=== PATIENT | female | born 1980 | race Caucasian/White ===

== ENCOUNTER 2025-01-16 11:19 | Outpatient (REF) | payer MEDICAID, SELFPAY ==
[2025-01-16 13:58] LABS: Hematocrit 41.4 % (37.0-47.0); Hemoglobin 13.6 g/dl (12.0-16.0); Mean Corpuscular HGB Conc 32.9 g/dl (31.0-35.0); Mean Corpuscular Hemoglobin 28.8 pg (27.0-33.0); Mean Corpuscular Volume 87.5 fL (80.0-98.0); NRBC Abs Auto 0.000 X10*3/uL (0.0-0.012); NRBC Pct Auto 0.0 /100WBC (0.0-0.2); Platelet Count 337 X10*3/uL (160-400); Red Blood Count 4.73 X10*6/uL (4.20-5.50); White Blood Count 8.0 X10*3/uL (4.8-10.8)
[2025-01-16 16:32] LABS: Bacterial Vaginosis PCR NEGATIVE (Negative); Candida Group PCR NOT DETECTED (Not Detect); Candida glab krusei PCR NOT DETECTED (Not Detect); Trichomonas vaginalis PCR NOT DETECTED (Not Detect)
[2025-01-16 17:05] LABS: CT PCR NOT DETECTED (Not Detect.); NG PCR NOT DETECTED (Not Detect.)
== END 2025-01-16 11:20 | disposition home or self-care (01) ==
LOC: HO.HHCL 11:19
PROVIDERS: PCP Student in an Organized Health Care Education/Training Program; Referring Provider Advanced Practice Midwife; Visit Provider Advanced Practice Midwife
DX: Z01.419 Encounter for gynecological examination (general) (routine) without abnormal findings (principal); O82 Encounter for cesarean delivery without indication; Z97.5 Presence of (intrauterine) contraceptive device; D21.9 Benign neoplasm of connective and other soft tissue, unspecified; Z20.2 Contact with and (suspected) exposure to infections with a predominantly sexual mode of transmission
CPT/HCPCS: 36415; 81515; 85027; 87491; 87591; 99202

== ENCOUNTER 2025-01-16 11:19 | Outpatient (AMB) | payer SELFPAY ==
--- NOTE | 2025-01-16 11:20 | A.OFFVIS_ITS ---
Intake Visit Reasons: New patient Annual/ Internal referral Mixing Machine Operator Required: Yes Mixing Machine Operator Language: Ecuadorean Mixing Machine Operator Services: Mixing Machine Operator Present ([facility] ) Mixing Machine Operator Name: Brooke [id number] Sewage Disposal Engineer: Sewage Disposal Engineer Present (Courtney) Accompanied by: Family/Other Allergies Penicillins Allergy (Verified 01/16/25 11:31) Unconscious Medication List - Last Reconciled 01/16/25 by Nurys San CNM epinephrine IM ONCE famotidine 40 mg PO DAILY olmesartan 20 mg PO DAILY Is last menstrual period known: Yes Last menstrual period: 01/02/25 Post menopausal: No Patient : No HPI HPI New patient Annual/ Internal referral: Details: Visit is listed as new patient annual/internal referral, however there is no internal referral, or external referral, and no primary care notes either within the system, or as scanned in, as that is section is empty. The patient speaks Ecuadorean, and Citizen Of [place]. she has a friend with her who is trying to translate, but we utilized the translation system in Ukranian,. Patient told me through the translation system, that she was told she had fibroids which were growing they were watched for 5 years in [facility]. Then they were growing, ( though she couldn't remember how big or relate it to a piece of fruit or anything,) so they put in an IUD to help her not bleed so much, and she was told to get another ultrasound in 6 months to check on it, but she has not had that. the IUD was put in a little over year ago in [facility]. She has been bleeding often on every couple of weeks since October. She has no pain.She uses about 3 pads a day at the maximum, when she was bleeding. her last period ? was the at beginning of December. She said she had a blood test with her fam anayeli doctor at [place] in the spring, she was not told she was anemic. She has 2 children who are grown delivered by . She had a mammogram done elsewhere in November and was told it was fine. [facility] Medical History (Updated 01/16/25 @ 12:00 by Nurys San CNM) delivery delivered Social History (Updated 01/16/25 @ 11:24 by Courtney Crow MA) Household Members: Family Housing: Apartment Current occupational status: unemployed Female Reproductive History Menstrual Age of Menarche: 12 Date of last menstrual period: 01/02/25 control method: permanent sterilization Total pregnancies: 2 Full term: 2 Date of Mammogram: 12/05/24 Physical Exam Const General: healthy appearing, comfortable, no acute distress, well developed and alert Nutritional Appearance: average body habitus Orientation/consciousness: patient oriented x3 Limitations: no limitations HEENT Head: Yes normocephalic Neck Neck: Yes normal visual inspection Chest Chest palpation & inspection: normal inspection of the chest Breast/axilla inspection: normal inspection of the breasts and normal inspection of the axillae Breast/axilla palpation: normal palpation of the breasts and normal palpation of the axillae Resp Effort & Inspection: normal respiratory effort GI Inspection: Yes normal to inspection, No Abdominal wall edema and No distended Palpation (GI): Soft to palpation and nontender Other: vertical abd incisions from C/S ext exam wnl vagina pink, moist firm pink mobile cervix, very sl friable w pap, and no abnormal discharge, and mirena strings visible- about 1.5 cms length.uterus midposition to antiverted, does NOT feel enlarged, is mobile, non tender, adnexa non enlarged, non tender. good muscle tone General: Yes bladder normal to palpation External Female Exam: normal external appearance and normal appearance of the urethra Speculum Exam - Vagina: normal appearance of the vagina, normal palpation and normal vaginal discharge Speculum Exam - Cervix: normal appearance of the cervix, normal palpation and nontender Bimanual exam- vagina & uterus: normal bimanual exam, normal palpation, uterine size normal, bladder normal to palpation, consistency normal, normal palpation, uterine mobility normal, uterine shape normal, No Cervical tenderness present, non-tender and no cervical motion tenderness Bimanual Exam- Adnexa, other: normal adnexae, no masses, normal and No adnexal tenderness Neuro General: patient oriented x3 Results Reviewed Results Reviewed: There is absolutely nothing in this chart. blank chart. Assessment & Plan Assessment & Plan (1) Fibroids: Code(s): D21.9 - Benign neoplasm of connective and other soft tissue, unspecified Category: Medical (2) delivery delivered: Comment: x2 1999, 2002 Code(s): O82 - Encounter for delivery without indication Category: Medical (3) IUD (intrauterine device) in place: Comment: Appears to be a Mirena. Code(s): Z97.5 - Presence of (intrauterine) contraceptive device Category: Social Hx Plan Apologies given for the limited nature of the ability to solve all of her questions and queries at this visit, as there were no records. Given the history she provided at this visit, I am ordering a CBC to check for anemia a pelvic ultrasound to check on the fibroids and I am asking her to bring records to the next visit so that we can review and compare how the fibroids may have changed at the the ultrasound. I told her that she may be referred to silica mixer operator after that visit depending on findings. Orders: Orders CT NG by PCR Vag/Cerv 01/16/25 Z01.419 - Encounter for gynecological examination (general) (routine) without abnormal findings HPV High risk Today Z01.419 - Encounter for gynecological examination (general) (routine) without abnormal findings Complete Blood Count no Diff 01/16/25 D21.9 - Benign neoplasm of connective and other soft tissue, unspecified, O82 - Encounter for delivery without indication, Z97.5 - Presence of (intrauterine) contraceptive device US pelvic and transvaginal 01/16/25 D21.9 - Benign neoplasm of connective and other soft tissue, unspecified, O82 - Encounter for delivery without indication, Z97.5 - Presence of (intrauterine) contraceptive device Pap Smear 01/16/25 Z01.419 - Encounter for gynecological examination (general) (routine) without abnormal findings Bacterial Vaginosis Panel 01/16/25 Z01.419 - Encounter for gynecological examination (general) (routine) without abnormal findings Coding Level of Care Code New Pt Level 4 (20479) Diagnoses Fibroids D21.9 delivery delivered O82 IUD (intrauterine device) in place Z97.5
--- OUTSIDE RECORDS SUMMARY | 2025-01-16 14:22 | XMS_ITS | Clinical Summary ---
Author Organization [facility] Address [address] [place] [address] Care Team Providers Care Stonehand Name Role Phone Unavailable Primary Care Provider Unavailabl e Source Comments PLEASE NOTE, if this patient is a minor, it may be UNLAWFUL to discuss sensitive information that is contained in these records (such as FAMILY PLANNING, MENTAL HEALTH or SUBSTANCE ABUSE) with the minor patient's parent or other person without the patient's specific authorization.[facility] Social History Tobacco Use Types Packs/Day Years Used Date Smoking Tobacco: Never Assessed Social Connections Answer Date Recorded Connectedness 0 12/09/2023 Financial Resource Strain Answer Date R ecorded Financial Resource Strain 0 2023 Stress Answer Date Recorded Stress 0 12/02/2023 Physical Activity Answer Date Recorded Physical Activity 0 12/02/2023 Food Insecurity Answer Date Recorded Food 0 12/24/2023 Transportation Needs Answer Date Record ed Transportation 0 12/02/2023 Housing Stability Answer Date Recorded Housing 0 12/02/2023 Safety and Environment Answer Date Girish rded Safety 0 12/02/2023 Utilities Answer Date Recorded Utilities 0 12/02/2023 Employment Answer Date Recorded Stress 0 12/09/2023 Comments Unknown Sex and Gender Information Value Date Recorded Sex Assigned at Not on file Legal Sex Female 1:44 PM PDT Gender Identity Not on file Sexual Orientation Not on file Plan of Treatment Health Maintenance Due Date Last Done Comments Anxiety Screening 1979 Diabetes Screening 1979 HPV Screening 1979 Hepatitis C Screening 1979 Lipid Screening 1979 Pap + HPV 1979 Tobacco Screening 1979 HIV Screening 08/11/1994 Relationship Safety Screening/Counseling 08/11/1994 Hypertension Screening (#1) 08/11/1997 Imm-DTaP/Tdap/Td (1 - Tdap) 08/11/1998 Imm-Hepatitis B (1 of 3 - 19+ 3-dose series) 05/16/199 9 Cervical Cancer Screening 08/11/2000 Pap Smear 08/11/2000 Imm-HPV (1 - 3-dose SCDM series) 08/11/2006 Breast Cancer Screening (Mammogram) 2019 Alcohol and Drug Screen 03/29/2024 Depression Annual Screen 03/29/2024 CT Colonography 08/11/2024 Colonoscopy 08/11/2024 Colorectal Cancer Screening 08/11/2024 FIT/gFOBT 08/11/2024 Fecal DNA 08/11/2024 Flexible Sigmoidoscopy 08/11/2024 [id number] ( season) 2024 Imm-Influenza (#1) 2024 Cervical Ablation/Cold-Knife Conization Discontinued Cervical Cryotherapy Discontinued Colposcopy Discontinued Endometrial Biopsy Discontinued Excision/Leep Discontinued HPV Genotyping Discontinued Vaginal Pap Discontinued Vulvoscopy Discontinued
== END 2025-01-16 13:19 | disposition home or self-care (01) ==
LOC: HO.HWSM 11:19
PROVIDERS: PCP Student in an Organized Health Care Education/Training Program; Visit Provider Advanced Practice Midwife
DX: D21.9 Benign neoplasm of connective and other soft tissue, unspecified (principal); O82 Encounter for cesarean delivery without indication; Z97.5 Presence of (intrauterine) contraceptive device
CPT/HCPCS: 99204

== ENCOUNTER 2025-01-16 14:12 | Outpatient (REF) | payer SELFPAY ==
--- OUTSIDE RECORDS SUMMARY | 2025-01-16 19:11 | XMS_ITS | Clinical Summary ---
Author Organization [facility] [address] [facility] [address] Address [address] [place] [address] Phone Care Team Providers Care Run Lead Name Role Phone Yang Primopan Primary Care Provider [phone] Allergies Active Allergy Reactions Criticality Noted Date Comments Penicillin 05/24/2024 Throat swells Medications olmesartan (BENICAR) 20 mg tablet Take 1 tablet (20 mg total) by mouth 1 (one) time each day. 30 each 5 08/07/2024 5 Active famotidine (Pepcid) 40 mg tablet Take 1 tablet (40 mg total) by mouth 1 (one) time each day. 90 each 1 08/07/2024 5 Active Active Problems Problem Noted Date Diagnosed Date H. pylori infection 08/16/2024 Primary hypertension 08/07/2024 Overweight (BMI 25.0-29.9) 08/07/2024 Encounters Date Type Department Care Team Description 12/09/2024 12:43 PM EDT - 12/09/2024 11:59 PM EDT Hospital Encounter Radiology Department - [address] [address] Encounter for screening mammogram for malignant neoplasm of breast Discharge Disposition: Home or Self Care from Last 3 Months Surgical History Surgery Date Site/Laterality Comments TUBAL LIGATION SECTION N/A 2 times in [facility] NOSE SURGERY 03/29/2021 - 03/28/2022 N/A APPENDECTOMY 03/29/1994 - 03/28/1995 N/A Medical History Medical History Date Comments Primary hypertension 08/07/2024 Overweight (BMI 25.0-29.9) 08/07/2024 Family History Medical History Relation Name Comments Throat cancer Father smoker Father HTN Mother uterine fibroid Sister Breast cancer Neg Hx Colon cancer Neg Hx Kidney cancer Neg Hx Ovarian cancer Neg Hx Pancreatic cancer Neg Hx Prostate cancer Neg Hx Uterine cancer Neg Hx Relation Name Status Comments Father Alive Maternal Grandfather Maternal Grandmother Mother Alive Sister Social History Tobacco Use Types Packs/Day Years Used Date Smoking Tobacco: Never Smokeless Tobacco: Never Alcohol Use Standard Drinks/Week Comments Never 0 (1 standard drink = 0.6 oz pur e alcohol) Housing Instability Answer Date Recorde d Are you worried that in the next 2 months you may not have stable housing? No 07/31/2024 Food Access & Nutrition Answer Date Rec orded Do you have access to a vari ety of food including fruits and vegetables? Yes 07/31/2024 Access to Healthcare Answer Date Record ed Within the last 3 months, wendy deutsch many times did you visit the emergency department for your medical care? 0 07/31/2024 Health Literacy Answer Date Recorded How often do you need to hav e someone help you when you read instructions, pamphlets, or other written material from your doctor or pharmacy? Unable to respond 07/31/2024 Caregiver: How often do you need to have someone help you when you read instructions, pamphlets, or other written material from your doctor or pharmacy? Not on file 025 Financial Risk Answer Date Recorded How hard is it for you to pa y for the very basics like food, housing, medical care, and air conditioning / heating? Patient declined 07/31/2024 Transportation Answer Date Recorded Has the lack of transportati on kept you from meetings, work, or from getting things needed for daily living? No Has the lack of transportati on kept you from medical appointments or from getting medications? No 07/31/2024 Social Isolation Answer Date Recorded How often do you feel lonely or isolated from th ose around you? Never 07/31/2024 Food Risk Answer Date Recorded Within the past 12 months we worried whether our food would run out before we got money to buy more. Never true 07/31/2024 Within the past 12 months th e food we bought just didn't last and we didn't have money to get more. Never true 07/31/2024 Dependent Care Answer Date Recorded Do you need help finding or paying for care for your loved ones. For example, residential child care counselor or elderly care for an older adult? No 07/31/2024 Education Answer Date Recorded Do you think completing more education or training, like finishing a GED, going to college, or learning a trade, would be helpful for you? Unable to respond 07/31/2024 Employment and Income Answer Date Recor ded During the last four weeks, have you been actively looking for work? Unable to respond 07/31/2024 Living Situation Answer Date Recorded What is your living situation? Unrecognized valu e 07/31/2024 Comments No Sex and Gender Information Value Date Recorded Sex Assigned at Not on file Legal Sex Female 1:36 PM EST Gender Identity Not on file Sexual Orientation Not on file Obstetrics History Para Term AB IAB SAB Ectopic Multiple Livin g Live Births 2 2 2 0 0 0 2 2 Date Outcome GA Total Labor Labor/2nd/3rd Weight Sex Type Anes PTL Arline A1 A5 Name Clin 2000 Term M CS-Un spec Living 2003 Term F CS-Un spec Living Last Filed Vital Signs Vital Sign Reading Time Taken Comments Blood Pressure 138/89 08/07/2024 9:12 AM EDT Pulse 75 08/07/2024 9:09 AM EDT Temperature 36.4 C (97.5 F) 08/07/2024 9:09 AM EDT Respiratory Rate 14 05/24/2024 9:32 AM EST Oxygen Saturation 100% 08/07/2024 9:09 AM EDT Inhaled Oxygen Concentration - - Weight 71.2 kg (157 lb) 08/07/2024 9:09 AM EDT Height 154.9 cm (5' 1 ) 08/07/2024 9:09 AM EDT Body Mass Index 29.66 08/07/2024 9:09 AM EDT Plan of Treatment Upcoming Encounters Date Type Department Care Team (Late st Contact Info) Description 02/08/2025 11:30 AM EST Office Visit Internal Medicine - [address] [place] [address] Erin Soria MD [address] [facility] [address] [place] [address] Health Maintenance Due Date Last Done Comments Colorectal Cancer Screening: Colonoscopy 1979 DTaP,Tdap,and Td Vaccines (1 - Tdap) 08/11/1998 Hepatitis B Vaccines (1 of 3 - 19+ 3-dose series) 08/11/1998 Cervical Cancer Screening: P ap Smear 08/11/2000 HPV Vaccines (1 - 3-dose SCD M series) 08/11/2006 HIV Screening 04/05/2024 Hepatitis C Screening 04/05/2024 COVID-19 Vaccine ( - 2023-2 5 season) 2024 Influenza Vaccine (#1) 2024 Social Influencers of Health Screening 07/31/2025 07/31/2024 Hypertension/CHF/CAD Annual BMP Blood Test 08/08/2025 08/08/2024 Breast Cancer Screening 12/09/2026 12/09/2024 Cholesterol Screening (Lipid Panel) 08/08/2029 08/08/2024 RSV Immunization Adult Patie nts (1 - 1-dose 75+ series) 08/11/2054 Depression Screening Completed 07/31/2024 HIB Vaccines Aged Out No longer eligi ble based on patient's age to complete this topic Hepatitis A Vaccines Aged Out No long er eligible based on patient's age to complete this topic IPV Vaccines Aged Out No longer eligi ble based on patient's age to complete this topic MMR Vaccines Aged Out No longer eligi ble based on patient's age to complete this topic Meningococcal ACWY Vaccine Aged Out N o longer eligible based on patient's age to complete this topic Meningococcal B Vaccine Aged Out No l onger eligible based on patient's age to complete this topic Pneumococcal Vaccine: Pediat rics (0 to 5 Years) and At-Risk Patients (6 to 49 Years) Aged Out No longer eligi ble based on patient's age to complete this topic RSV Immunization Patients Un filippo 20 months Aged Out No longer eligible b ased on patient's age to complete this topic Varicella Vaccines Aged Out No longer eligible based on patient's age to complete this topic Procedures Procedure Name Priority Date/Time Associated Diagnosis Comments MG MAMMO DIGITAL SCREENING W ZAK BILAT Routine 12/09/2024 1:06 PM EDT Encounter for screening mammogram for malignant neoplasm of breast COMPREHENSIVE METABOLIC PANEL Routine 08/08/2024 9:01 AM EDT H. pylori infection Adult general medical examination Other fatigue Vitamin D deficiency Encounter for lipid screening for cardiovascular disease Other abnormal glucose LIPID PANEL WITH REFLEX TO DIRECT LDL Routine 08/08/2024 9:01 AM EDT H. pylori infection Adult general medical examination Other fatigue Vitamin D deficiency Encounter for lipid screening for cardiovascular disease Other abnormal glucose from Last 3 Months or Most Recently Relevant to Health Maintenance Results * MG Mammo Digital Screening w Zak bilat (12/09/2024 1:06 PM EDT) Anatomical Region Laterality Modality Breast Bilateral Mammography 12/12/2024 5:40 PM EDT Impressions 12/12/2024 5:40 PM EDT No mammographic evidence of malignancy. BREAST DENSITY: C - The breasts are heterogeneously dense which may obscure small masses. BI-RADS CATEGORY: 1 - NEGATIVE RECOMMENDATION: Screening bilateral mammogram is recommended in 1 year. MAMMO LOCATION: [facility], [address] [place] [address], [id number], . -------- FINAL REPORT -------- Dictated By: Georgia Blankenship Dictated Date: 12/12/2024 17:40 ET Assigned Physician: Georgia Blankenship Reviewed and Electronically Signed By: Georgia Blankenship Signed Date: 12/12/2024 17:40 ET Workstation ID: [id number] Transcribed By: Self Edit Transcribed Date: 12/12/2024 17:40 ET Narrative 12/12/2024 5:40 PM EDT EXAM: Screening Mammogram CLINICAL: 44 years old, Female, routine annual exam. COMPARISON: This is a baseline exam. TECHNIQUE: Bilateral MLO and CC views were obtained digitally with 3-D mammogram (digital breast tomosynthesis). Computer-aided detection was utilized in evaluation of this exam (CAD). FINDINGS: No suspicious mass, architectural distortion, or suspicious calcifications. Procedure Note Georgia Blankenship MD - 12/12/2024 EXAM: Screening Mammogram CLINICAL: 44 years old, Female, routine annual exam. COMPARISON: This is a baseline exam. TECHNIQUE: Bilateral MLO and CC views were obtained digitally with 3-Dmammogram (digital breast tomosynthesis). Computer-aided detection wasutilized in evaluation of this exam (CAD). FINDINGS: No suspicious mass, architectural distortion, or suspiciouscalcifications. IMPRESSION: No mammographic evidence of malignancy. BREAST DENSITY: C - The breasts are heterogeneously dense which mayobscure small masses. BI-RADS CATEGORY: 1 - NEGATIVE RECOMMENDATION: Screening bilateral mammogram is recommended in 1 year. MAMMO LOCATION: [facility], [address] [place] [address], [address], . -------- FINAL REPORT -------- Dictated By: Georgia Blankenship Dictated Date: 12/12/2024 17:40 ET Assigned Physician: Georgia Blankenship Reviewed and Electronically Signed By: Georgia Blankenship Signed Date: 12/12/2024 17:40 ET Workstation ID: [id number] Transcribed By: Self Edit Transcribed Date: 12/12/2024 17:40 ET Mago Perkins CNM IMG BI PROCEDURES Final Res ult * (ABNORMAL) Lipid panel with reflex to direct LDL (08/08/2024 9:01 AM EDT) Cholesterol 223(H) 0 - 200 mg/dL LAB CHEMISTRY METHOD 08/08/2024 4:04 PM EDT [facility] Triglycerides 149 0 - 150 mg/dL LAB CHEMISTRY METHOD 08/08/2024 4:04 PM EDT [facility] HDL 55 >=40 mg/dL LAB CHEMISTRY METHOD 08/08/2024 4:04 PM EDT [facility] LDL Calculated 138(H) 0 - 100 mg/dL LAB CHEMISTRY METHOD 08/08/2024 4:04 PM EDT [facility] VLDL Cholesterol Meño 29.8 mg/dL LAB CHEMISTRY METHOD 08/08/2024 4:04 PM [facility] Non HDL Chol. (LDL+VLDL) 168(H) <145 mg/dL LAB CHEMISTRY METHOD 08/08/2024 4:04 PM [facility] Chol/HDL Ratio 4.1 0.0 - 4.4 LAB CHEMISTRY METHOD 08/08/2024 4:04 PM [facility] Blood Venous blood specimen / Unknown Venipuncture / Unknown 08/08/2024 9:01 AM EDT 08/08/2024 9:01 AM EDT Erin Soria MD LAB BLOOD ORDERABLES Final Resul t [facility] [address] [place] [address], [place] [phone] * Comprehensive metabolic panel (08/08/2024 9:01 AM EDT) Sodium 142 133 - 145 mmol/L LAB CHEMISTRY METHOD 08/08/2024 3:31 PM [facility] Potassium 4.7 3.5 - 5.5 mmol/L LAB CHEMISTRY METHOD 08/08/2024 3:31 PM [facility] Chloride 107 96 - 110 mmol/L LAB CHEMISTRY METHOD 08/08/2024 3:31 PM [facility] CO2 28 21 - 32 mmol/L LAB CHEMISTRY METHOD 08/08/2024 3:31 PM [facility] Anion Gap 7 3 - 11 LAB CHEMISTRY METHOD 08/08/2024 3:31 PM [facility] Glucose 73 70 - 100 mg/dL LAB CHEMISTRY METHOD 08/08/2024 3:31 PM [facility] BUN 12 5 - 25 mg/dL LAB CHEMISTRY METHOD 08/08/2024 3:31 PM [facility] Creatinine 0.81 0.50 - 1.10 mg/dL LAB CHEMISTRY METHOD 08/08/2024 3:31 PM [facility] eGFR 92 >=60 mL/min/1. 73m2 LAB CHEMISTRY METHOD 08/08/2024 3:31 PM [facility] Comment:Calculation based on the Chronic Kidney Disease Epidemiology Collaboration (CKD-EPI) equation refit without adjustment for race. BUN/Creatinine Ratio 14.8 LAB CHEMISTRY METHOD 08/08/2024 3:31 PM [facility] Calcium 9.1 8.5 - 10.5 mg/dL LAB CHEMISTRY METHOD 08/08/2024 3:31 PM [facility] AST (SGOT) 19 10 - 42 unit/L LAB CHEMISTRY METHOD 08/08/2024 3:31 PM [facility] ALT (SGPT) 28 10 - 60 unit/L LAB CHEMISTRY METHOD 08/08/2024 3:31 PM [facility] Alkaline Phosphatase 81 42 - 121 unit/L LAB CHEMISTRY METHOD 08/08/2024 3:31 PM [facility] Total Protein 7.0 6.0 - 8.0 g/dL LAB CHEMISTRY METHOD 08/08/2024 3:31 PM [facility] Albumin 3.9 3.2 - 5.0 g/dL LAB CHEMISTRY METHOD 08/08/2024 3:31 PM [facility] Total Bilirubin 0.3 0.0 - 1.4 mg/dL LAB CHEMISTRY METHOD 08/08/2024 3:31 PM [facility] Blood Venous blood specimen / Unknown Venipuncture / Unknown 08/08/2024 9:01 AM EDT 08/08/2024 9:01 AM EDT Erin Soria MD LAB BLOOD ORDERABLES Final Resul t [facility] [place] [facility] [address] [place] [address], from Last 3 Months or Most Recently Relevant to Health Maintenance Insurance [facility] [employer] Care Teams Run Lead Relationship Specialty Start Date End Date Erin Soria MD [address] [place] [phone] PCP - General Internal Medicine 05/09/24
== END 2025-01-16 14:13 | disposition home or self-care (01) ==
LOC: HO.LNP 14:12
PROVIDERS: Visit Provider Advanced Practice Midwife
DX: Z01.419 Encounter for gynecological examination (general) (routine) without abnormal findings (principal); O82 Encounter for cesarean delivery without indication; Z97.5 Presence of (intrauterine) contraceptive device; D21.9 Benign neoplasm of connective and other soft tissue, unspecified
CPT/HCPCS: 87626; 88175